=== PATIENT | male | born 1975 | race Caucasian/White ===

== ENCOUNTER 2022-04-11 00:38 | Day surgery (SDC) | payer BC, SELFPAY ==
[2022-04-04 10:47] VITALS: BMI 25.7
--- NOTE | 2022-04-04 11:02 | PC.NURSE ---
Report to the Outpatient Waiting Room, entrance under the green pavilion located off [facility], at 0900 on 04-11-22. OR Time: 1100. - You and your visitor will be asked a series of questions to screen for COVID 19 for your protection. - Only one visitor is allowed at this time. - The patient visitor is requested to leave or wait in car when not with patient. - A mask is required within the hospital. Patients may have clear liquids (water, carbonated beverages, clear teas, apple juice) until 3 hours prior to surgery with a maximum of 20 ounces. 0800 - No food from midnight until time of surgery - Infants may have breast milk until 4 hours before surgery, infant formula 6 hours prior to surgery. - Children will be allowed to drink immediately following surgery. If applicable, please bring a bottle or sippy cup to assist with drinking. Juice, water, soda, and popsicles are readily available. For infants on formula, please bring formula the day of surgery. Pacifiers are allowed. Take the following medications with a SIP of water the morning of surgery: None Medications to discontinue per physician: Vitamins and supplements; aspirin Date to take last dose: 04-08-22; Per Dr. Sutton Please no make-up, nail yakut, hairspray, perfume, deodorant, or body powder the day of surgery. No jewelry (including any body piercings) or valuables the day of surgery, leave them at home. Please take a shower or bath the night before, or the morning of, surgery with an antibacterial soap. Wear comfortable, loose fitting clothing. Children are encouraged to wear pajamas. - Jewelry must be removed prior to entering the operating room. Rings and piercings that are not removed may be cut off. - The hospital will not accept responsibility for valuables. - Please leave all valuables, including medications, at home the day of surgery. If you are going home after surgery, a licensed drivers license examiner must drive you home. - NO public transportation without another adult. - We recommend that an adult stay with you for 24 hours following discharge. - We also recommend that you do not drive, make important decision, drink alcoholic beverages, or take any drugs that were not prescribed by your health care provider for at least 24 hours after your discharge time. For Pediatric surgeries, we recommend two adults accompany the child home (only one inside the building at this time). Follow any additional instructions given to you from your surgeon. If you or anyone in your household have experienced Covid symptoms in the past week, please notify your surgeon or the nurse liaison at the phone number below for possible testing. Telephone instructions given to Kavon Lopez and asked if any additional questions and then verbalized understanding. Patient advised to call surgeon office or pre surgery nurse liaison [phone] if any additional questions.
--- NOTE | 2022-04-08 06:46 | PM.HPGS ---
History of Present Illness History of Present Illness Consent: Risks, benefits, and alternatives have been discussed and questions answered. Patient agrees to proceed with procedure. Chief complaint: Arnaud Chronic Otitis Media Narrative: Kavon Lopez is a 46 year old male had recent sinus surgery however every time he flies he has pain or develops fluid in his ear Review of Systems Review of Systems: All systems reviewed & are unremarkable except as noted in HPI and below PMFSH Family History Family History Mother Hypertension Mother Hypertension Social History Social History Smoking status: Never smoker Second hand tobacco smoke exposure: No Alcohol intake: never Substance use: never Substance use type: does not use Living arrangements: with family Spiritual care concerns: No Comments family social medical history unremarkable Meds Home Medications and Allergies Home Medications Medication Instructions Recorded Confirmed Type aspirin 325 mg tablet 325 mg PO DAILY 04/04/22 04/04/22 History Allergies Allergy/AdvReac Type Severity Reaction Status Date / Time neomycin Allergy Intermediate Hives Verified 04/04/22 10:45 Exam Narrative: chest clear nose negative TMs retracted heart without murmurs Assessment and Plan Assessment and plan (1) Eustachian tube dysfunction: Code(s): H69.80 - Other specified disorders of Eustachian tube, unspecified ear Status: Acute Plan plan bilateral myringotomy with insertion of T tubes
[2022-04-11] VITALS (7 sets, daily range): BP systolic 116–133; BP diastolic 73–89; PULSE 44–60; RESP 14–18; TEMP 36.1–36.5; O2SAT 99–100
--- NOTE | 2022-04-11 06:27 | WPDHPUPDATE1 ---
History and Physical Update Update Date/Time: 04/11/22 06:27 History and Physical has been reviewed, including an updated exam of the patient. There are NO changes in the patient's condition. Risks, benefits, and alternatives have been discussed and questions answered. Patient agrees to proceed with procedure.
[2022-04-11] MEDS: ACETAMINOPHEN 500 MG TABLET 1000 MG PO (07:18)
--- NOTE | 2022-04-11 07:24 | WPDANESEPPF ---
Anes - Initial Pre Proc Eval Procedure: Operation Date: 04/11/22 08:30 Proposed Procedures p Bilateral Myringotomy with Insertion T-Tubes - Leobardo Sutton MD Date/Time: 04/11/22 07:24 Surgeon: Leobardo Sutton MD Pre Op Diagnosis: Arnaud Chronic Otitis Media Patient Data Age: 46 Gender: M Height: 1.88 m Weight: 90.72 kg Allergies Allergy/AdvReac Type Severity Reaction Status Date / Time neomycin Allergy Intermediate Hives Verified 04/04/22 10:45 Home Medications Medication Instructions Recorded Confirmed Type aspirin 325 mg tablet 325 mg PO DAILY 04/04/22 04/04/22 History Patient hx anesthesia problems: none Family hx anesthesia problems: none Results Review: All pre-operative results and documents have been reviewed as part of the pre-operative evaluation. [facility] Surgical History Surgical History (Updated 04/11/22 @ 07:24 by Aleksey Jacobs MD) History of carpal tunnel surgery S/P cubital tunnel release Family History Family History Mother Hypertension Mother Hypertension Social History Social History Smoking status: Never smoker Second hand tobacco smoke exposure: No Alcohol intake: never Substance use: never Substance use type: does not use Living arrangements: with family Spiritual care concerns: No Anes - Eval Final PreProcedure Day of Procedure 04/11/22 07:24 Patient weight: normal Heart: regular rate and rhythm Lungs: clear to auscultation Airway: Mallampati scale class II Neurological: alert and oriented ASA classification: I Emergent: no Anesthetic plan: proceed Anesthesia type and monitoring: general and standard monitoring Results Review: All pre-operative results and documents have been reviewed as part of the pre-operative evaluation. Informed Consent: The patient's anesthetic plan and its attendant risks and benefits were discussed with the patient/family/POA. Questions were solicited and answers provided to the satisfaction of the patient/family/POA.
[2022-04-11] MEDS: LACTATED RINGERS 1,000 ML 30 ML IV CONT (07:30)
[2022-04-11] MEDS: CIPROFLOXACIN HCL 0.3% OP SOLN 2.5 ML BTL 4 DROP EACH EAR (08:40)
--- NOTE | 2022-04-11 08:44 | W.PM.PROC2 ---
Procedure Note - Detailed Date of Procedure 04/11/22 Pre-op Diagnosis Arnaud Chronic Otitis Media Post-op Diagnosis Same Procedure Performed Bilateral myringotomy with insertion of T tubes Surgeon Leobardo Sutton MD Description of Procedure Patient was prepped and draped general anesthesia the right ear inspected an anteroinferior incision made T-Tube inserted the other ear was inspected an anterosuperior incision made T-Tube inserted
== END 2022-04-11 10:10 | disposition home or self-care (01) ==
PROVIDERS: Visit Provider Otolaryngology
PROC: (CPT 69436; principal; 2022-04-11 08:30)
DX: H69.80 Other specified disorders of Eustachian tube, unspecified ear (principal); Z79.82 Long term (current) use of aspirin
CPT/HCPCS: 69436; A9270; J1100; J2250; J2405; J2704; J3010; J7120

== ENCOUNTER 2022-05-22 07:53 | Outpatient (CLI) | payer BC, SELFPAY | END 2022-05-22 07:54 | disposition home or self-care (01) | LOC: ANHAUDIO 07:54 | PROVIDERS: Visit Provider Otolaryngology | DX: H90.3 Sensorineural hearing loss, bilateral (principal) | CPT/HCPCS: 92557; 92567 ==

== ENCOUNTER 2022-06-07 00:35 | Day surgery (SDC) | payer BC, SELFPAY ==
[2022-06-03 16:41] VITALS: BMI 26.3
--- NOTE | 2022-06-03 17:00 | SUR.PREOP ---
Report to the Outpatient Waiting Room, entrance under the green pavilion located off [facility], at time 1030 on date 06/07/22. OR Time: 1230. - You and your visitor will be asked to self-screen and do not enter if you have any COVID symptoms. - Only one visitor and NO children visitors are allowed at this time. - The patient visitor is requested to leave or wait in car when not with patient due to restrictions. - A mask is required within the hospital. Patients may have clear liquids (water, carbonated beverages, clear teas, apple juice) until 3 hours prior to surgery with a maximum of 20 ounces. - No food from midnight until time of surgery - Infants may have breast milk until 4 hours before surgery, infant formula 6 hours prior to surgery. - Children will be allowed to drink immediately following surgery. If applicable, please bring a bottle or sippy cup to assist with drinking. Juice, water, soda, and popsicles are readily available. For infants on formula, please bring formula the day of surgery. Pacifiers are allowed. Take the following medications with a SIP of water the morning of surgery: N/A Medications to discontinue per physician STOP ALL SUPPLIMENTS AND VITAMINES 3 DAYS PRIOR TO PROCEDURE Date to take last dose 06/04/22 Please no make-up, nail congolese, hairspray, perfume, deodorant, or body powder the day of surgery. No jewelry (including any body piercings) or valuables the day of surgery, leave them at home. Please take a shower or bath the night before, or the morning of, surgery with an antibacterial soap. Wear comfortable, loose fitting clothing. Children are encouraged to wear pajamas. - Jewelry must be removed prior to entering the operating room. Rings and piercings that are not removed may be cut off. - The hospital will not accept responsibility for valuables. - Please leave all valuables, including medications, at home the day of surgery. If you are going home after surgery, a licensed tow motor driver must drive you home. - NO public transportation without another adult. - We recommend that an adult stay with you for 24 hours following discharge. - We also recommend that you do not drive, make important decision, drink alcoholic beverages, or take any drugs that were not prescribed by your health care provider for at least 24 hours after your discharge time. For Pediatric surgeries, we recommend two adults accompany the child home (only one inside the building at this time). Follow any additional instructions given to you from your surgeon. If you or anyone in your household have experienced Covid symptoms in the past week, please notify your surgeon or the nurse liaison at the phone number below for possible testing. Telephone instructions given to MIQUEL DONAHUE and asked if any additional questions and then verbalized understanding. Patient advised to call surgeon office or pre surgery nurse liaison [phone] if any additional questions.
--- NOTE | 2022-06-05 16:13 | PM.IMHP ---
H&P: HPI History of Present Illness Date/Time: 06/05/22 16:13 Chief Complaint: Eustachian tube dysfunction obstructed myringotomy tubes Narrative: planned surgical procedure Review of Systems Review of Systems: see All systems reviewed & are unremarkable except as noted in HPI and below PMFSH Surgical History Surgical History History of carpal tunnel surgery S/P cubital tunnel release Family History Family History Mother Hypertension Mother Hypertension Social History Social History Smoking status: Never smoker Second hand tobacco smoke exposure: No Alcohol intake: never Substance use: never Substance use type: does not use Living arrangements: with family Spiritual care concerns: No Meds Home Medications and Allergies Home Medications Medication Instructions Recorded Confirmed Type aspirin 325 mg tablet 325 mg PO DAILY 04/04/22 06/03/22 History Adult One Daily Multivitamin 1 tab-cap PO DAILY 06/03/22 06/03/22 History Allergies Allergy/AdvReac Type Severity Reaction Status Date / Time neomycin Allergy Intermediate Hives Verified 06/03/22 16:45 Exam Narrative: tubes in place obstructed bilaterally Assessment and Plan Assessment and plan (1) Obstructed pressure-equalization (PE) tube: Code(s): T85.898A - Other specified complication of other internal prosthetic devices, implants and grafts, initial encounter Status: Acute Assessment and Plan: plan OR tube removal replacement with collar buttons risks discussed including facial nerve paralysis cholesteatoma persistent perforation failure to resolve symptoms which is a large % that this occurs not sure the patient is having abnormal hearing patient voiced understanding of all the risks and agreed. (2) Hearing loss, bilateral: Code(s): H91.93 - Unspecified hearing loss, bilateral Status: Acute
--- NOTE | 2022-06-06 13:55 | WPDANESEPPF ---
Anes - Initial Pre Proc Eval Procedure: Operation Date: 06/07/22 12:30 Proposed Procedures p Removal Bilateral Tubes, Bilateral Replacement of Tubes - Milind Jose MD <Michael Walden DO - Last Filed: 06/12/22 07:25> Date/Time: 06/06/22 13:55 <Michael Walden DO - Last Filed: 06/12/22 07:25> Surgeon: Milind Jose MD <Michael Walden DO - Last Filed: 06/12/22 07:25> Pre Op Diagnosis: Arnaud Eustachian Tube Dysfunction <Michael Walden DO - Last Filed: 06/12/22 07:25> Patient Data Age: 46 Gender: M Height: 1.88 m Weight: 92.99 kg <Michael Walden DO - Last Filed: 06/12/22 07:25> Allergies Allergy/AdvReac Type Severity Reaction Status Date / Time neomycin Allergy Intermediate Hives Verified 06/07/22 11:52 <Michael Walden DO - Last Filed: 06/12/22 07:25> Home Medications Medication Instructions Recorded Confirmed Type aspirin 325 mg tablet 325 mg PO DAILY 04/04/22 06/07/22 History Adult One Daily Multivitamin 1 tab-cap PO DAILY 06/03/22 06/07/22 History <Michael Walden DO - Last Filed: 06/12/22 07:25> Patient hx anesthesia problems: none <Aleksey Jacobs MD - Last Filed: 06/07/22 11:14> Family hx anesthesia problems: none <Aleksey Jacobs MD - Last Filed: 06/07/22 11:14> Results Review: All pre-operative results and documents have been reviewed as part of the pre-operative evaluation. <Michael Walden DO - Last Filed: 06/12/22 07:25> [facility] Surgical History Surgical History: Surgical History History of carpal tunnel surgery S/P cubital tunnel release <Michael Walden DO - Last Filed: 06/12/22 07:25> Family History Family History: Family History Mother Hypertension Mother Hypertension <Michael Walden DO - Last Filed: 06/12/22 07:25> Social History Social History: Social History Smoking status: Never smoker Second hand tobacco smoke exposure: No Alcohol intake: never Substance use: never Substance use type: does not use Living arrangements: with family Spiritual care concerns: No <Michael Walden DO - Last Filed: 06/12/22 07:25> Anes - Eval Final PreProcedure Day of Procedure 06/06/22 13:55 <Michael Walden DO - Last Filed: 06/12/22 07:25> Patient weight: overweight <Michael Walden DO - Last Filed: 06/12/22 07:25> Heart: regular rate and rhythm <Michael Walden DO - Last Filed: 06/12/22 07:25> Lungs: clear to auscultation <Michael Walden DO - Last Filed: 06/12/22 07:25> Airway: Mallampati scale class II <Michael Walden DO - Last Filed: 06/12/22 07:25> Mallampati scale class 1 <Aleksey Jacobs MD - Last Filed: 06/07/22 11:14> Neurological: alert and oriented <Michael Walden DO - Last Filed: 06/12/22 07:25> Last oral intake: >/= 8 hours <Michael Walden DO - Last Filed: 06/12/22 07:25> ASA classification: I <Michael Walden DO - Last Filed: 06/12/22 07:25> Emergent: no <Michael Walden DO - Last Filed: 06/12/22 07:25> Anesthetic plan: proceed <Michael Walden DO - Last Filed: 06/12/22 07:25> Anesthesia type and monitoring: general GIVS and standard monitoring <Michael Walden, - Last Filed: 06/12/22 07:25> Results Review: All pre-operative results and documents have been reviewed as part of the pre-operative evaluation. <Michael Walden DO - Last Filed: 06/12/22 07:25> Informed Consent: The patient's anesthetic plan and its attendant risks and benefits were discussed with the patient/family/POA. Questions were solicited and answers provided to the satisfaction of the patient
[2022-06-07] VITALS (8 sets, daily range): BP systolic 109–125; BP diastolic 69–84; PULSE 56–59; RESP 16; TEMP 36.1–36.3; O2SAT 97–100
--- NOTE | 2022-06-07 07:10 | WPDHPUPDATE1 ---
History and Physical Update Update Date/Time: 06/07/22 07:10 History and Physical has been reviewed, including an updated exam of the patient. There are NO changes in the patient's condition. Risks, benefits, and alternatives have been discussed and questions answered. Patient agrees to proceed with procedure.
[2022-06-07] MEDS: ACETAMINOPHEN 500 MG TABLET 1000 MG PO (11:20)
[2022-06-07] MEDS: LACTATED RINGERS 1,000 ML 30 ML IV CONT (11:20)
--- NOTE | 2022-06-07 11:58 | WPDHPUPDATE1 ---
History and Physical Update Update Date/Time: 06/07/22 11:58 Update, left tube removal and replacement, t tube
[2022-06-07] MEDS: CIPROFLOXACIN HCL 0.3% OP SOLN 2.5 ML BTL 4 DROP EACH EAR (12:22)
--- NOTE | 2022-06-07 12:46 | W.PM.PROC2 ---
Procedure Note - Detailed Date of Procedure 06/07/22 Pre-op Diagnosis Left blocked myringotomy tube Post-op Diagnosis Same Procedure Performed Removal replacement of left-sided myringotomy tube Surgeon Milind Jose MD Anesthesia General (LMA) Indications See above Findings Abnormally positioned left-sided myringotomy tube placed tube is low position straight down the canal easy to see into Description of Procedure Patient identified consent verified. Patient brought operating. Time-out performed. General anesthesia induced LMA secured. Patient prepped and draped bed positioned microscope brought into field. Second time-out performed. Left EAC examined T-Tube removed the myringotomy the whole myringotomy was made extended inferiorly so that the tube would sit straight along the canal T-Tube placed after being trimmed slightly. Patient tolerated the procedure well there was no bleeding drops placed. I performed all dictated portions no blood loss care the patient given Anesthesiology. Patient taken to PACU. Drains No Packing No Pathology None sent Complications No immediate complications Condition Stable Disposition PACU
== END 2022-06-07 13:55 | disposition home or self-care (01) ==
PROVIDERS: Visit Provider Otolaryngology
PROC: (CPT 69424; principal; 2022-06-07 12:30)
DX: T85.898A Other specified complication of other internal prosthetic devices, implants and grafts, initial encounter (principal); Y83.8 Other surgical procedures as the cause of abnormal reaction of the patient, or of later complication, without mention of misadventure at the time of the procedure; H91.93 Unspecified hearing loss, bilateral; Z79.82 Long term (current) use of aspirin
CPT/HCPCS: 69436; A9270; J1100; J2250; J2405; J2704; J3010; J7120